=== PATIENT | female | born 1935 | race African-American/Black ===

== ENCOUNTER 2022-07-26 11:38 | Inpatient (IN) ==
[2022-07-26] MEDS ORDERED: 0.9 % Sodium Chloride 1,000 ML IVC ONE (11:46)
[2022-07-26 12:03] LABS: Basophils % 0.2 %; Eosinophils # 0.1 K/mcL (0.0-0.6); Eosinophils % 0.3 %; Hematocrit 41.4 % (35.3-44.9); Immature Granulocytes % 0.4 % (0-4); Lymphocytes # 1.3 K/mcL (0.6-4.6); Lymphocytes % 8.2 %; Mean Corpuscular HGB Conc 31.4 g/dL (31.6-35.5); Mean Corpuscular Hemoglobin 27.2 pg (28.0-33.3); Mean Corpuscular Volume 86.6 fL (83.0-100.0); Mean Platelet Volume 9.7 fL (9.4-12.4); Monocytes # 1.1 K/mcL (0.0-1.3); Monocytes % 6.8 %; Neutrophils # 13.1 K/mcL (1.6-8.9); Platelet Count 252 K/mcL (140-400); Red Blood Count 4.78 M/mcL (3.82-4.97); Red Cell Distribution Width 13.9 % (11.5-14.5); Segmented Neutrophils % 84.1 %; White Blood Count 15.6 K/mcL (4.3-11.1)
[2022-07-26 12:10] LABS: INR 1.3; Prothrombin Time 14.9 Seconds (9.4-12.1)
[2022-07-26 12:13] LABS: Activated Partial Thrombo Time 28.2 Seconds (26.0-36.0)
[2022-07-26 12:15] LABS: Bacteria,Urine Many per hpf (None-Few); Bilirubin,Urine Negative (Negative); Blood,Urine Negative (Negative); Clarity,Urine Turbid (Clear); Color,Urine Yellow (Yellow); Glucose,Urine (UA) Normal (Normal); Ketones,Urine 10 mg/dL (Negative); Leukocyte Esterase,Urine Large (Negative); Mucus,Urine Few per lpf (None-Few); Nitrite,Urine Negative (Negative); PH,Urine 5.5 pH Units (5.0-8.0); Protein,Urine Trace mg/dL (Neg-Trace); Squamous Epithelial Cell,Urine Few per hpf (None-Few); Urobilinogen,Urine Normal (Normal); WBC,Urine 50-100 per hpf (0-3)
[2022-07-26 12:22] LABS: Alanine Aminotransferase 11 Units/L (7-52); Albumin 3.6 g/dL (3.5-5.7); Albumin/Globulin Ratio 1.2 (1.1-2.2); Alkaline Phosphatase 58 Units/L (34-104); Aspartate Amino Transferase 12 Units/L (13-39); BUN/Creatinine Ratio 25 (6-26); Bilirubin,Direct 0.1 mg/dL (0.0-0.2); Bilirubin,Indirect 0.7 mg/dL (0.0-1.0); Bilirubin,Total 0.8 mg/dL (0.3-1.0); Blood Urea Nitrogen 26 mg/dL (8-23); Calcium 8.6 mg/dL (8.6-10.3); Carbon Dioxide 25 mEq/L (23-29); Chloride 109 mEq/L (98-107); Globulin 2.9 g/dL (2.4-3.5); Glucose 170 mg/dL (70-105); Magnesium 1.8 mg/dL (1.6-2.6); Osmolality,Calculated 301 (280-300); Phosphorous 3.4 mg/dL (2.7-4.5); Potassium 4.1 mEq/L (3.5-5.1); Sodium 141 mEq/L (136-145); Total Protein 6.5 g/dL (6.4-8.9)
[2022-07-26 12:23] LABS: Troponin I < 0.03 ng/mL (< 0.04)
[2022-07-26] MEDS ORDERED: cefTRIAXone 1,000 MG in 0.9 % Sodium Chloride Mini Bag 100 ML IVPB ONE (12:26)
[2022-07-26 12:52] LABS: Influenza A PCR Negative (Negative); Influenza B PCR Negative (Negative); Resp. Syncytial Virus PCR Negative (Negative)
[2022-07-26 13:04] LABS: SARS-CoV-2 by PCR (In House) Negative (Negative)
[2022-07-26] MEDS ORDERED: Naloxone 0.4 MG/ML INJ IVP PRN (13:54)
[2022-07-26] MEDS: 0.9 % Sodium Chloride 1,000 ML IVC SCH (14:43)
[2022-07-27] MEDS: 0.9 % Sodium Chloride 1,000 ML IVC SCH (02:39)
[2022-07-27 05:04] LABS: Estimated Average Glucose 128 mg/dl; Hemoglobin A1C 6.1 %
[2022-07-27 05:05] LABS: Basophils % 0.3 %; Eosinophils # 0.2 K/mcL (0.0-0.6); Eosinophils % 1.9 %; Hematocrit 38.1 % (35.3-44.9); Hemoglobin 12.1 g/dL (11.5-15.4); Immature Granulocytes % 0.3 % (0-4); Lymphocytes # 2.2 K/mcL (0.6-4.6); Lymphocytes % 18.6 %; Mean Corpuscular HGB Conc 31.8 g/dL (31.6-35.5); Mean Corpuscular Hemoglobin 27.3 pg (28.0-33.3); Mean Corpuscular Volume 85.8 fL (83.0-100.0); Mean Platelet Volume 10.2 fL (9.4-12.4); Monocytes # 1.1 K/mcL (0.0-1.3); Monocytes % 9.7 %; Neutrophils # 8.2 K/mcL (1.6-8.9); Platelet Count 232 K/mcL (140-400); Red Blood Count 4.44 M/mcL (3.82-4.97); Red Cell Distribution Width 13.8 % (11.5-14.5); Segmented Neutrophils % 69.2 %; White Blood Count 11.8 K/mcL (4.3-11.1)
[2022-07-27 05:22] LABS: Calcium 9.2 mg/dL (8.6-10.3); Magnesium 1.8 mg/dL (1.6-2.6); Phosphorous 2.9 mg/dL (2.7-4.5); Potassium 3.5 mEq/L (3.5-5.1)
[2022-07-27] MEDS ORDERED: hydrALAZINE 10 MG TABLET PO PRN (08:24)
[2022-07-27] MEDS ORDERED: Acetaminophen 325 MG TABLET PO PRN (08:32)
[2022-07-27] MEDS: lisinopriL 10 MG TABLET PO SCH (09:20)
[2022-07-27] MEDS: Cholecalciferol (D-3) 1,000 UNIT (25MCG) TABLET PO SCH (09:20)
[2022-07-27] MEDS: *HR* OxyCODONE Immed Rel 5 MG TABLET PO SCH ×2 (09:20→20:42)
[2022-07-27] MEDS: lisinopriL 5 MG TABLET PO SCH (09:21)
[2022-07-27 11:10] LABS: A.calcoaceticus-baumannii cplx Not Detected (Not Detect); Bacteroides fragilis by PCR Not Detected (Not Detect); Candida albicans by PCR Not Detected (Not Detect); Candida auris by PCR Not Detected (Not Detect); Candida glabrata by PCR Not Detected (Not Detect); Candida krusei by PCR Not Detected (Not Detect); Candida parapsilosis by PCR Not Detected (Not Detect); Candida tropicalis by PCR Not Detected (Not Detect); Crypto. neoformans/gattii PCR Not Detected (Not Detect); Enterobacter cloacae Cmplx PCR Not Detected (Not Detect); Enterobacterales by PCR Not Detected (Not Detect); Enterococcus faecalis by PCR Not Detected (Not Detect); Enterococcus faecium by PCR Not Detected (Not Detect); Escherichia coli by PCR Not Detected (Not Detect); Klebs. pneumoniae group by PCR Not Detected (Not Detect); Klebsiella aerogenes by PCR Not Detected (Not Detect); Klebsiella oxytoca by PCR Not Detected (Not Detect); Proteus by PCR Not Detected (Not Detect); Pseudomonas aeruginosa by PCR Not Detected (Not Detect); Salmonella species by PCR Not Detected (Not Detect); Serratia marcescens by PCR Not Detected (Not Detect); Staph epidermidis by PCR Not Detected (Not Detect); Staph lugdunensis by PCR Not Detected (Not Detect); Staphylococcus aureus by PCR Not Detected (Not Detect); Staphylococcus by PCR DETECTED (Not Detect); Stenotrophomonas maltophilia Not Detected (Not Detect); Streptococcus agalactiae(B)PCR Not Detected (Not Detect); Streptococcus by PCR Not Detected (Not Detect); Streptococcus pneumoniae PCR Not Detected (Not Detect); Streptococcus pyogenes (A) PCR Not Detected (Not Detect)
[2022-07-27] MEDS ORDERED: cefTRIAXone 1,000 MG in 0.9 % Sodium Chloride Mini Bag 100 ML IVPB SCH (12:00)
[2022-07-27] MEDS: *HR* Heparin 5,000 UNIT/ML VIAL SQ SCH (17:14)
[2022-07-27] MEDS: traZODone 50 MG TABLET PO SCH (20:42)
[2022-07-27] MEDS: Melatonin 3 MG TABLET PO SCH (20:42)
[2022-07-28 03:14] LABS: Basophils # 0.1 K/mcL (0.0-0.2); Basophils % 0.5 %; Eosinophils # 0.3 K/mcL (0.0-0.6); Eosinophils % 2.7 %; Hemoglobin 11.2 g/dL (11.5-15.4); Immature Granulocytes % 0.6 % (0-4); Lymphocytes % 27.8 %; Mean Corpuscular Hemoglobin 27.3 pg (28.0-33.3); Mean Corpuscular Volume 85.4 fL (83.0-100.0); Mean Platelet Volume 10.2 fL (9.4-12.4); Monocytes # 1.1 K/mcL (0.0-1.3); Neutrophils # 6.4 K/mcL (1.6-8.9); Platelet Count 226 K/mcL (140-400); Red Cell Distribution Width 13.6 % (11.5-14.5); Segmented Neutrophils % 58.4 %; White Blood Count 10.9 K/mcL (4.3-11.1)
[2022-07-28 03:39] LABS: Calcium 8.8 mg/dL (8.6-10.3); Magnesium 1.7 mg/dL (1.6-2.6); Phosphorous 2.8 mg/dL (2.7-4.5); Potassium 3.4 mEq/L (3.5-5.1)
[2022-07-28] MEDS: *HR* Heparin 5,000 UNIT/ML VIAL SQ SCH ×2 (05:19→18:35)
[2022-07-28] MEDS: *HR* OxyCODONE Immed Rel 5 MG TABLET PO SCH ×2 (08:34→21:37)
[2022-07-28] MEDS: Cholecalciferol (D-3) 1,000 UNIT (25MCG) TABLET PO SCH (08:34)
[2022-07-28] MEDS: lisinopriL 5 MG TABLET PO SCH (08:35)
[2022-07-28] MEDS: lisinopriL 10 MG TABLET PO SCH (08:35)
[2022-07-28] MEDS: Ertapenem 1,000 MG in 0.9 % Sodium Chloride Mini Bag 100 ML IVPB SCH (08:35)
[2022-07-28] MEDS: traZODone 50 MG TABLET PO SCH (21:37)
[2022-07-28] MEDS: Melatonin 3 MG TABLET PO SCH (21:37)
[2022-07-29] MEDS: *HR* Heparin 5,000 UNIT/ML VIAL SQ SCH ×2 (06:37→16:53)
[2022-07-29] MEDS: Ertapenem 1,000 MG in 0.9 % Sodium Chloride Mini Bag 100 ML IVPB SCH (07:58)
[2022-07-29] MEDS: lisinopriL 10 MG TABLET PO SCH (07:59)
[2022-07-29] MEDS: lisinopriL 5 MG TABLET PO SCH (07:59)
[2022-07-29] MEDS: Cholecalciferol (D-3) 1,000 UNIT (25MCG) TABLET PO SCH (07:59)
[2022-07-29] MEDS: *HR* OxyCODONE Immed Rel 5 MG TABLET PO SCH ×2 (08:03→21:17)
[2022-07-29 11:22] LABS: BUN/Creatinine Ratio 18 (6-26); Blood Urea Nitrogen 14 mg/dL (8-23)
[2022-07-29] MEDS: Melatonin 3 MG TABLET PO SCH (21:18)
[2022-07-29] MEDS: traZODone 50 MG TABLET PO SCH (21:18)
[2022-07-30] MEDS: *HR* Heparin 5,000 UNIT/ML VIAL SQ SCH ×2 (04:40→17:14)
[2022-07-30 06:17] LABS: Calcium 8.7 mg/dL (8.6-10.3); Magnesium 1.8 mg/dL (1.6-2.6); Phosphorous 3.5 mg/dL (2.7-4.5); Potassium 3.5 mEq/L (3.5-5.1)
[2022-07-30] MEDS: Ertapenem 1,000 MG in 0.9 % Sodium Chloride Mini Bag 100 ML IVPB SCH (07:44)
[2022-07-30] MEDS: Cholecalciferol (D-3) 1,000 UNIT (25MCG) TABLET PO SCH (07:48)
[2022-07-30] MEDS: lisinopriL 10 MG TABLET PO SCH (07:48)
[2022-07-30] MEDS: *HR* OxyCODONE Immed Rel 5 MG TABLET PO SCH ×2 (07:48→21:58)
[2022-07-30] MEDS: lisinopriL 5 MG TABLET PO SCH (07:48)
[2022-07-30] MEDS ORDERED: Lidocaine -MPF 1% 5 ML AMPUL INFILT ONE (15:24)
[2022-07-30] MEDS ORDERED: Vancomycin 500 MG in 0.9 % Sodium Chloride Mini Bag 100 ML IVPB ONE (21:00)
[2022-07-30] MEDS: Melatonin 3 MG TABLET PO SCH (21:58)
[2022-07-30] MEDS: traZODone 50 MG TABLET PO SCH (21:58)
[2022-07-31] MEDS: *HR* Heparin 5,000 UNIT/ML VIAL SQ SCH (05:57)
[2022-07-31] MEDS: Ertapenem 1,000 MG in 0.9 % Sodium Chloride Mini Bag 100 ML IVPB SCH (09:49)
[2022-07-31] MEDS: lisinopriL 10 MG TABLET PO SCH (09:56)
[2022-07-31] MEDS: lisinopriL 5 MG TABLET PO SCH (09:56)
[2022-07-31] MEDS: Cholecalciferol (D-3) 1,000 UNIT (25MCG) TABLET PO SCH (09:56)
[2022-07-31] MEDS: *HR* OxyCODONE Immed Rel 5 MG TABLET PO SCH (09:57)
[2022-07-31 11:14] VITALS: BP 126/72; PULSE 66; TEMP 98.4; O2SAT 95
== END 2022-07-31 13:48 | DRG 689 ==
LOC: 3BNU 11:38 → EMEROOARM 11:38 → SUATTDRO 13:53 → 3BNU 14:17
PROVIDERS: ADMIT Internal Medicine; ATTEND Internal Medicine